=== PATIENT | male | born 1985 | race Hispanic/Latino ===

== ENCOUNTER 2024-12-08 08:33 | Emergency (ER) | payer BC ==
[~2024-12-08] VITALS: Ht 172.7 cm; Wt 133.8 kg
--- NOTE | 2024-12-08 08:56 | ERN ---
General Chief Complaint: FOOT INJURY/PAIN Stated Complaint: FOOT PAIN Time Seen by MD: 08:41 History of Present Illness Initial Comments 39-year-old male who presents for right foot pain for the last two weeks. Patient is obese. Prediabetic. He denies any injury. He reports pain to the lateral side of the right foot and increases with movement and walking. He denies fevers or systemic illness. Clinical exam there is no signs of infection. Neurovascularly intact. Allergies: Coded Allergies: No Known Allergies (Unverified Allergy, Unknown, 12/08/24) Past Medical History Past Medical History: No Pertinent History Past Surgical History: Cholecystectomy ROS Dictation CONSTITUTIONAL: No chills, no fever, no weakness, no diaphoresis, no malaise. HEAD/FACE: No signs of trauma. EENT: No eye pain, no blurred vision, no tearing, no double vision, no ear pain, no ear discharge, no nose pain, no nasal congestion, no throat pain, no throat swelling, no mouth pain. RESPIRATORY: No cough, no orthopnea, no SOB, no stridor, no wheezing. CARDIOVASCULAR: No chest pain, no edema, no palpitations, no syncope. GASTROINTESTINAL/ABDOMINAL: No abdominal pain, no constipation, no diarrhea, no nausea, no vomiting. GENITOURINARY: No abnormal discharge, no dysuria, no frequent urination, no hematuria. No complaints of pain in the genitals. MUSCULOSKELETAL: Right foot pain INTEGUMENTARY: No change in color, no change in hair/nails, no dryness, no lesion, no lumps, no rash. NEUROLOGICAL/PSYCH: No anxiety, not depressed, no emotional problem, no headache, no numbness, no pre-existing deficit, no history of seizures, no tremors, no weakness. HEMATOLOGIC/LYMPHATIC: Not anemic, no history of blood clots, no apparent bleeding, no bruising, glands not swollen. All Systems Negative, Except as Noted. Physical Exam Physical Exam Dictation VITAL SIGNS: Reviewed. GENERAL APPEARANCE: Alert, oriented x3, no acute distress, obese. HEAD AND FACE: Non-traumatic. EYES: PERRL, pink conjunctivas, eyelid no trauma, anterior chamber clear. EARS: Pinnas intact and no signs of trauma or erythema. Ear canals clear and no discharge. TMs no erythema. NOSE: No discharge, no bleeding. OROPHARYNX: Mouth normal, teeth no caries, tongue pink. Pharynx clear, no erythema. Tonsils no exudates, no abscesses noted. Mucous membrane moist. NECK: Supple, non-tender, no thyromegaly, no masses, no JVD, no bruits. BREAST: Deferred. CHEST: No tenderness, no crepitus, no paradoxical movement, no retractions. LUNGS: Clear, well-ventilated, symmetric, no rales, no wheezing, no rhonchi, no stridor, good breath sounds bilaterally. HEART: Regular rate, regular rhythm, no murmur, no gallops. VASCULAR: No peripheral edema. ABDOMEN: Soft, positive bowel sounds, nondistended, no guarding, nontender, no rebound, no masses no hepatomegaly, no splenomegaly, no Lemus's sign, no hernias. RECTAL: Deferred. GENITAL: Deferred. NEUROLOGICAL: Normal speech, gross motor function intact, gross sensory function intact. MUSCULOSKELETAL: Neurovascularly intact right foot, he does have pain with inversion extra abrasion, mostly in the lateral side. EXTREMITIES: Nontender, full range of motion. SKIN: Color pink, dry, no turgor, no rash, no lacerations, no abrasions, no contusions. LYMPHATICS: Deferred. Results Laboratory and Microbiology Lab and Micro Result Laboratory Tests Test 12/08/24 08:01 White Blood Count 7.8 K/uL (4.8-10.8) Red Blood Count 4.70 MIL/uL (4.50-6.20) Hemoglobin 13.3 g/dL (14.0-18.0) L Hematocrit 40.3 % (42-54) L Mean Corpuscular Volume 85.7 fL (79-99) Mean Corpuscular Hemoglobin 28.3 pg (27.0-33.0) Mean Corpuscular Hemoglobin Concent 33.0 g/dL (32.0-36.0) Red Cell Distribution Width 12.9 % (11.0-15.5) Platelet Count 327 K/uL (130-400) Mean Platelet Volume 10.3 fL (7.5-10.5) Immature Granulocyte % (Auto) 0.6 % (0-1) Neutrophils (%) (Auto) 54.8 % (40.0-77.0) Lymphocytes (%) (Auto) 28.2 % (21.0-51.0) Monocytes (%) (Auto) 7.3 % (3.0-13.0) Eosinophils (%) (Auto) 8.5 % (0.0-8.0) H Basophils (%) (Auto) 0.6 % (0.0-5.0) Neutrophils # (Auto) 4.3 K/uL (1.8-7.7) Lymphocytes # (Auto) 2.2 K/uL (1.0-4.8) Monocytes # (Auto) 0.6 K/uL (0.1-1.0) Eosinophils # (Auto) 0.66 K/uL (0.00-0.70) Basophils # (Auto) 0.05 K/uL (0.00-0.20) Absolute Immature Granulocyte (auto 0.05 K/uL (0-1) Nucleated Red Blood Cells 0.0 % (0.0-0.19) Erythrocyte Sedimentation Rate 18 MM/HR (0-15) H Sodium Level 141 mmol/L (136-145) Potassium Level 3.7 mmol/L (3.5-5.1) Chloride Level 101 mmol/L (101-111) Carbon Dioxide Level 31 mmol/L (21-32) Blood Urea Nitrogen 26 mg/dL (7-18) H Creatinine 1.2 mg/dL (0.5-1.3) Glomerular Filtration Rate Calc 78 mL/min (>90) Random Glucose 115 mg/dL (70-105) H Uric Acid 8.4 mg/dL (2.6-7.2) H Total Calcium 8.3 mg/dL (8.5-10.1) L C-Reactive Protein, Quantitative 16.90 mg/L (0.5-3.0) H MDM CC: Unprovoked right lateral foot pain Historian: Patient Comorbidities: Obesity, prediabetes Limitations by social determinants of health: None Differential diagnosis: Infection, gout, tendinitis, fracture, other Foot x-ray per my independent interpretation is unremarkable. No bony abnormalities. Labs for my independent interpretation show no leukocytosis. Hemoglobin 13.3. Sed rate and CRP are both mildly elevated. 18/16.9. acid elevated 8.4. Patient may be having a gout flare-up. There was no obvious signs of infection. He may also have a tendinitis. Low suspicion for any septic joint or life threats. Patient received IV fluids and IV Toradol in the ER Plan will be to discharge with indomethacin/NSAIDs. Recommend PCP follow up. ED Course Orders Procedure Category Date Status Time Cbc With Differential LAB 12/08/24 Complete 08:47 Basic Metabolic Panel LAB 12/08/24 Complete 08:47 Crp Quantitative LAB 12/08/24 Complete 08:47 Erythrocyte Sed Rate LAB 12/08/24 Complete 08:47 Uric Acid LAB 12/08/24 Complete 08:47 Foot Comp 3+Vws Rt RAD 12/08/24 Resulted 08:47 Lactated Ringers PHA 12/08/24 Complete 1000ml (Lactated 10:00 Ketorolac PHA 12/08/24 Complete Tromethamine 30mg/Ml 10:00 Current Medications Medications (Trade) Dose Ordered Sig/Gilda Route PRN Reason Start Time Stop Time Status Last Admin Dose Admin Ketorolac Tromethamine (toRADol) 30 mg ONCE ONCE IV 12/08/24 10:00 12/08/24 10:01 DC Lactated Ringer's 1,000 ml @ 0 mls/hr ONCE ONCE IV 12/08/24 10:00 12/08/24 10:01 DC Vital Signs Date Time Temp Pulse Resp B/P (MAP) Pulse Ox O2 Delivery O2 Flow Rate FiO2 12/08/24 09:10 98.1 77 17 143/89 96 Room Air* 0 21 12/08/24 08:35 98.6 84 19 140/98 97 Room Air 0 DX & DISP Disposition: Discharge Departure Impression: Primary Impression: Gout of right foot Condition: Stable Scripts Indomethacin (Indomethacin) 50 Mg Capsule 1 CAP PO TID for arthritis for 10 Days, #30 CAP 0 Refills with food Prov: TIN WELLER DO 12/08/24 Additional Instructions: You may be having a gout flare-up or possibly a tendinitis. Your uric acid lab value was elevated, which can be seen with gout flare-ups. Your CBC and metabolic panel are normal. Your inflammatory markers ( ESR and CRP) are mildly elevated. The foot x-ray is unremarkable. I have prescribed indomethacin, which is an nonsteroidal anti-inflammatory pain medication. Take as prescribed. As we discussed, I recommend that you follow up with the primary doctor this week. If the medication that I have prescribed is not effective, you may need further studies such as an MRI. Please bring your lab values with you to your doctor's visit. Please return to the emergency department as needed. Referrals: SELF,REFERRAL (PCP) TIN WELLER DO Dec 08, 2024 08:56
[2024-12-08 09:05] LABS: IMMATURE GRANULOCYTE ABSOLUTE 0.05 K/uL (0-1); NUCLEATED RED BLOOD CELLS 0.0 % (0.0-0.19); PLATELET COUNT (AUTO) 327 K/uL (130-400); RED BLOOD CELL COUNT(AUTO) 4.70 MIL/uL (4.50-6.20); RED CELL DISTRIBUTION WIDTH 12.9 % (11.0-15.5); WHITE BLOOD COUNT (AUTO) 7.8 K/uL (4.8-10.8)
[2024-12-08 09:07] LABS: ERYTHROCYTE SEDIMENTATION RATE 18 MM/HR (0-15)
[2024-12-08 09:28] LABS: CREATININE 1.2 mg/dL (0.5-1.3); GLOMERULAR FILTR. RATE CALC 78.0 mL/min (>90); GLUCOSE,RANDOM 115.0 mg/dL (70-105); SODIUM SERUM 141.0 mmol/L (136-145); UREA NITROGEN, BLOOD 26.0 mg/dL (7-18)
--- NOTE | 2024-12-08 09:45 | HMCIMG ---
EXAM: CR right foot, 3 View. CLINICAL HISTORY: pain COMPARISON: None provided. FINDINGS: BONES: No acute fracture or aggressive appearing osseous lesion. JOINTS: The joint spaces appear within normal limits. No dislocation. SOFT TISSUES: The soft tissues are unremarkable. IMPRESSION: No acute osseous abnormality. /[place]
[2024-12-08] MEDS ORDERED: INDO50CA98 PO (10:19)
[2024-12-08] MEDS: LACTATED RINGERS 1000ML 1,000 ML IV ONE (10:29)
[2024-12-08 11:17] VITALS: BP 126/77; PULSE 68; RESP 15; TEMP 97.9; O2SAT 99
--- NOTE | 2024-12-08 11:21 | NUR ---
DC PATIENT WAS DC'D BY DR WELLER, I DC'D PATIENTS IV WITH CATH STILL INTACT AND APPLIED 2X2 GAUZE WITH COBAN I EXPLAINED TO PATIENT TO FOLLOW UP WITH PCP, PROVIDED INFO BASED ON DIAGNOSIS, PRESCRIPTIONS AND ANSWERED ANY FOLLOW UP QUESTIONS, PATIENT AMBULATED OUT OF ED, NO COMPLICATIONS
== END 2024-12-08 11:16 | disposition home or self-care (01) ==
LOC: EDH 08:33
DX: M10.071 Idiopathic gout, right ankle and foot (principal); R73.03 Prediabetes; E66.9 Obesity, unspecified; Z68.41 Body mass index [BMI] 40.0-44.9, adult; Z90.49 Acquired absence of other specified parts of digestive tract
CPT/HCPCS: 99284; 96374; 96361; 84550; 80048; 85025; 85651; 86140; 36415; 73630; J1885; J7120